=== PATIENT | male | born 1985 | race Caucasian/White ===

== ENCOUNTER 2019-07-04 11:21 | Emergency (ER) | payer OTHER ==
[2019-07-04 11:41] VITALS: BP 147/93
--- NOTE | 2019-07-04 11:57 | UC ---
General HPI - HPI Summary HPI Summary: 33 yo gentleman c/o 3 days progressive cough, sinus congestion. + productive yellow green sputum. No ghanshyam hemoptysis. Has used inhaler in the past, not recently. [place] fever. No rash. Ears popping sensation. No GI issues. Concerned with sx d/t hx pneumonia. - History of Current Complaint Chief Complaint: UCGeneralIllness Stated Complaint: SORE THROAT, CHILLS AND FEVER Time Seen by Provider: 07/04/19 11:56 Hx Obtained From: Patient Pain Intensity: 3 - Allergy/Home Medications Allergies/Adverse Reactions: Allergies Allergy/AdvReac Type Severity Reaction Status Date / Time No Known Allergies Allergy Verified 07/04/19 11:42 Home Medications: Home Medications Esomeprazole Magnesium [Nexium 24Hr] 1 cap PO DAILY 07/04/19 [History Confirmed 07/04/19] PMH/Surg Hx/FS Hx/Imm Hx Previously Healthy: Yes - Surgical History Surgical History: Yes Surgery Procedure, Year, and Place: eye ,bunion,hernia,achilles repair - Family History Known Family History: Positive: Non-Contributory - Social History Alcohol Use: None Substance Use Type: None Smoking Status (MU): Never Smoked Tobacco Review of Systems All Other Systems Reviewed And Are Negative: Yes Constitutional: Positive: Fatigue Skin: Positive: Negative Eyes: Positive: Negative ENT: Positive: Sore Throat, Ear Ache, Nasal Discharge, Sinus Congestion, Sinus Pain/Tenderness Respiratory: Positive: Cough Cardiovascular: Positive: Negative Gastrointestinal: Positive: Negative Genitourinary: Positive: Negative Motor: Positive: Negative Neurovascular: Positive: Negative Musculoskeletal: Positive: Negative Neurological: Positive: Negative Psychological: Positive: Negative Is Patient Immunocompromised?: No Physical Exam Triage Information Reviewed: Yes Appearance: Well-Nourished - sitting up. looks tired but nad Vital Signs: Initial Vital Signs Temp 99.8 F 07/04/19 11:39 Pulse 92 07/04/19 11:39 Resp 18 07/04/19 11:39 BP 147/93 07/04/19 11:39 Pulse Ox 98 07/04/19 11:39 Vital Signs Reviewed: Yes Eye Exam: Normal ENT: Positive: Pharyngeal erythema, Nasal congestion, Nasal drainage, TM dull, Uvula midline - uvula midline, Other - L eac a little red, not draining. TM dull, + serious otitis L. R TM dull, rtx'd. Neck exam: Normal Neck: Positive: Supple, Nontender, No Lymphadenopathy Respiratory Exam: Other - + rhonchorus cough. ? slight exp wheeze with cough, no distress. Respiratory: Positive: No respiratory distress, No accessory muscle use Cardiovascular Exam: Other - HR regular, correlates with radial pulse L Cardiovascular: Positive: Pulses Normal, Brisk Capillary Refill Abdominal Exam: Normal Abdomen Description: Positive: Nontender Musculoskeletal Exam: Normal Neurological Exam: Normal - grossly nonfocal Psychological Exam: Normal - nad Skin Exam: Normal - no visible or reported rash Course/Dx - Course Course Of Treatment: RST and INFluenza rapid - neg Reviewed coa / tx plan. Questions as posed answered to the best of my ability. - Diagnoses Provider Diagnosis: Bronchitis, Sinusitis, Serous otitis media Discharge ED - Sign-Out/Discharge Documenting (check all that apply): Patient Departure All imaging exams completed and their final reports reviewed: No Studies - Discharge Plan Condition: Stable Disposition: HOME Prescriptions: Albuterol HFA INHALER* [Ventolin HFA Inhaler*] 1 - 2 puff INH Q4H PRN #1 mdi PRN Reason: Wheezing Azithromyxin RUTH (NF) [Z-Ruth (Zithromax) 250 mg tabs #6] 2 tab PO .TODAY, THEN 1 DAILY #6 tab Benzonatate CAP* [Tessalon 100 MG CAP*] 100 mg PO TID PRN #30 cap PRN Reason: Cough Patient Education Materials: Sinusitis (ED), Acute Bronchitis (ED), Serous Otitis Media (ED) Referrals: No Primary Care Phys,NOPCP [Primary Care Provider] - Additional Instructions: Follow up with your primary care physician, per routine. Please seek medical attention for worse or new problems. Hydrate. Elevated blood pressure - today 147/93 - avoid "Decongestant" in cold medications. - Billing Disposition and Condition Condition: STABLE Disposition: Home
[2019-07-04 12:06] LABS: Influenza A Molecular NEGATIVE (Negative); Influenza B Molecular NEGATIVE (Negative)
== END 2019-07-04 12:22 | disposition home or self-care (01) ==
LOC: UCEAST 11:21
DX: J40 Bronchitis, not specified as acute or chronic (principal); J32.9 Chronic sinusitis, unspecified; H65.92 Unspecified nonsuppurative otitis media, left ear; R03.0 Elevated blood-pressure reading, without diagnosis of hypertension
CPT/HCPCS: 87651; 99202; G0463